=== PATIENT | male | born 1990 | race American Indian/Alaskan Native ===

== ENCOUNTER 2017-10-11 23:26 | Emergency (ER) | payer MEDICAID ==
[2017-10-12 00:19] VITALS: BP 101/60
== END 2017-10-12 04:20 | disposition left against medical advice (07) ==
LOC: ED 23:26
DX: R50.9 Fever, unspecified (principal); J02.9 Acute pharyngitis, unspecified; M79.1 Myalgia; Z53.21 Procedure and treatment not carried out due to patient leaving prior to being seen by health care provider

== ENCOUNTER 2018-06-10 12:57 | Emergency (ER) | payer MEDICAID ==
[2018-06-10 13:16] VITALS: BP 116/85
== END 2018-06-10 18:44 | disposition left against medical advice (07) ==
LOC: ED 12:57
DX: K08.89 Other specified disorders of teeth and supporting structures (principal); Z53.21 Procedure and treatment not carried out due to patient leaving prior to being seen by health care provider